=== PATIENT | female | born 1975 | race Caucasian/White ===

== ENCOUNTER 2025-01-12 10:05 | Emergency (ER) | payer OTHER ==
[~2025-01-12] VITALS: Ht 154.9 cm; Wt 88.7 kg
--- NOTE | 2025-01-12 10:30 | Physician Documentation ---
History of Present Illness Stated Complaint: LOWER BACK PAIN HPI The patient is a 50 year old female that presents to the emergency department today for evaluation of left shoulder and left lower back pain times several months. Reports that she sustained an injury while at work several months ago falling onto her butt and injuring her shoulder and lower back at that time. Denies having any x-rays at that time reports that she has continued tenderness and pain when she lifts her left arm or turns her neck toward that side pain with sitting that radiates down her hip. Denies any cervical tenderness or pain at this time. Denies headache. Denies saddle anesthesia incontinence of bowel or bladder or numbness to her upper or lower extremities. Persists she has her Tylenol last night with some relief. Medication Reconciliation Allergies: Coded Allergies: No Known Allergies (Unverified , 01/12/25) Scheduled Cyclobenzaprine* (Cyclobenzaprine*), 1 TAB PO BID Review of Systems ROS As stated above in the HPI, otherwise all systems are reviewed and negative. Physical Exam Physical Exam VITALS: Reviewed and as above. GENERAL: Alert, no apparent distress. HEENT: Normocephalic, atraumatic, PERRL, EOMI, dry mucosa, no erythema RESPIRATORY: Lungs clear, normal breath sounds, no respiratory distress. CHEST: No accessory muscle use, no retractions CV: Regular rate, rhythm, no edema, no murmur, No: JVD GI: Soft, non-tender, bowels sounds present, no rebound, guarding, or rigidity BACK: No CVA tenderness, or swelling MUSCULOSKELETAL: Significant bilateral chronic lymphedema, drinking wound to the lower right extremity, mild erythema present SKIN: Warm and dry, significant lymphedema and mild erythema present to the bilateral lower extremities. NEURO: Oriented x4, No motor or sensory deficit PSYCH: Normal mood and affect, no agitation Medical Decision Making Findings This patient presents with back and shoulder pain most consistent with lumbosacral sprain and cervical radiculopathy secondary to a fall in August. Differential diagnoses includes lumbago versus musculoskeletal spasm / strain versus sciatica. Less likely sciatica as straight leg raise test was negative. No back pain red flags on history or physical. Presentation not consistent with malignancy (lack of history of malignancy, lack of B symptoms), fracture (no trauma, no bony tenderness to palpation), cauda equina (no bowel or urinary inco ntinence/retention, no saddle anesthesia, no distal weakness), AAA, viscus perforation, osteomyelitis or epidural abscess (no IVDU, vertebral tenderness), renal colic, pyelonephritis (afebrile, no CVAT, no urinary symptoms). Given the clinical picture, no indication for imaging at this time. Patient provided with Toradol injection, steroid injection and muscle relaxer today. Patient reported significant improvement in her discomfort. Patient will follow up with your primary care provider for additional imaging and MRI. Patient will return to the emergency department if she has any worsening of her current symptoms or any additional concerning symptoms that we discussed here today. Differential Dx:Considerations: Include: AAA, -Complete, - Incomplete, -Inevitable, -Missed, -Threatened, Abruptio placentae, Angina/[place], Aortic dissection, Appendicitis, Bowel obstruction, Cholangitis, Cholelithasis, Constipation, Diverticular disease, Esophageal ruptu re, Esophagitis, Gastritis/PUD, Gastroenteritis, GI hemorrhage, Hernia, Hepatitis, Inflammatory BD, Ischemic bowel, Ovarian cyst/torsion, Pancreatitis, PID, Porphyria, Trauma, intraabdominal, Urinary obstruction, Urinary tract infection, Urolithiasis, Other Departure Disposition: 01 HOME / SELF CARE / HOMELESS Impression: Primary Impression: Shoulder pain Additional Impressions: Shoulder joint pain Lumbosacral pain Sprain, lumbosacral Discharge Instructions: Cervical Radiculopathy, [id number], Chronic Back Pain, [id number], Sciatica, [id number], Shoulder Pain Additional Instructions: Evaluated for chronic left shoulder in the left low back pain that radiates down her left leg. Today we discussed that you have an MRI approval you just need to find a primary care provider to order the MRI. We discussed Tylenol ibuprofen muscle relaxers for discomfort and pain relief. You are given a Toradol injection as steroid injection and a dose of muscle relaxer while here in the emergency department. Prescribed Flexeril for five days. Medication as prescribed. Not drive or operate equipment while taking Flexeril we will combine Flexeril was any other medications that may cause sedation. Please return to the emergency department if you have any worsening or recurrent symptoms or any other concerning symptoms that we discussed here today. Referrals: NO PRIMARY CARE PROVIDER (PCP) Prescriptions Cyclobenzaprine* (Cyclobenzaprine*) 10 Mg Tablet 1 TAB PO BID for 5 Days, #10 TAB Prov: KARINE SKINNER 01/12/25 Education Educated: Patient Educated regarding: diagnosis, treatment, need for follow up Signature Scribe Signature: A Attestation: Scribed for Karine Skinner by SONALI Shrestha . 01/14/25 12:49 KARINE SKINNER Jan 12, 2025 10:30
[2025-01-12] MEDS: ketorolac trometh 30MG/ML vial 30 MG/ML VIAL IM ONE (11:01)
--- NOTE | 2025-01-12 11:05 | RADIOLOGY REPORT ---
PROCEDURE: Left shoulder radiographs. INDICATION: Pain TECHNIQUE: 3 views of the left shoulder were obtained. COMPARISON: None FINDINGS: There is no evidence of fracture or dislocation. Joint spaces are maintained. The soft tis sues are unremarkable. IMPRESSION: 1. No fracture or dislocation.
--- NOTE | 2025-01-12 11:07 | RADIOLOGY REPORT ---
PROCEDURE: Left hip radiographs. INDICATION: Pain TECHNIQUE: Frontal and frogleg lateral views of the left hip were obtained. COMPARISON: None FINDINGS: There is no evidence of fracture or dislocation. Joint spaces are maintained. The soft tis sues are unremarkable. IMPRESSION: 1. No fracture or dislocation.
--- NOTE | 2025-01-12 11:07 | RADIOLOGY REPORT ---
INDICATION: pain TECHNIQUE: 4 views of the lumbar spine were obtained. COMPARISON: None FINDINGS: There are no acute fractures or subluxations. IMPRESSION: No acute fracture or subluxation.
[2025-01-12] MEDS ORDERED: CYCL-1 PO (12:17)
[2025-01-12 12:29] VITALS: BP 173/100; PULSE 70; RESP 17; TEMP 98; O2SAT 97
== END 2025-01-12 12:30 | disposition home or self-care (01) ==
LOC: ER 10:06
DX: S33.9XXA Sprain of unspecified parts of lumbar spine and pelvis, initial encounter (principal); M25.512 Pain in left shoulder; X58.XXXA Exposure to other specified factors, initial encounter; Y93.89 Activity, other specified; Y92.89 Other specified places as the place of occurrence of the external cause; Y99.8 Other external cause status
CPT/HCPCS: 36415; 72100; 73030; 73502; 84484; 96372; 99284; J1885; J2919

== ENCOUNTER 2025-01-31 10:16 | Emergency (ER) | payer OTHER ==
[~2025-01-31] VITALS: Ht 154.9 cm; Wt 90.6 kg
[~2025-01-31 10:16] MED LIST: CYCL-1 PO
[2025-01-31 10:23] VITALS: TEMP 97.8
--- NOTE | 2025-01-31 11:17 | Physician Documentation ---
History of Present Illness ~ General Chief Complaint: See Chief Complaint Stated Complaint: BACK AND SHOULDER PAIN Time Seen by MD: 15:07 Primary Medical Doctor: No PCP History of Present Illness Initial Comments This is a 50-year-old female who presents back to the emergency department with low back pain, left shoulder pain, and left leg pain following a fall at work. Patient reports that pain has not worsened though it isn't also not improved. Patient reports no new weakness or numbness in legs, no loss of bowel or bladder control and no saddle paresthesia. Medication Reconciliation Allergies: Coded Allergies: No Known Allergies (Unverified , 01/31/25) Scheduled Cyclobenzaprine* (Cyclobenzaprine*), 1 TAB PO BID Review of Systems ROS As stated above in the HPI, otherwise all systems are reviewed and negative. Constitutional: Denies: chills, fever, weakness Eyes: Denies: pain, blurred vision ENT: Denies: ear pain, nose pain, throat pain, mouth pain Respiratory: Denies: cough, shortness of breath Cardiovascular: Denies: chest pain, palpitations Gastrointestinal: Denies: abdominal pain, nausea, vomiting Genitourinary: Denies: burning, dysuria Female Genitalia: Denies: vaginal discharge, pelvic pain Neurological: Denies: headache, dizziness Musculoskeletal: Denies: pain, swelling Integumentary: Denies: rash, lesions Allergic/Immunologic: Denies: hives, itching Hematologic/Lymphatic: Denies: no symptoms reported Psychiatric: Denies: depression, anxiety Physical Exam Physical Exam Vital Signs: Temperature: 97.8, Source: Oral, Heart Rate: 78, Respiratory Rate: 18, BP: 177/95, Pulse Oximetry: 95, Weight: 90.600 Oxygen Flow Rate: 0 Physical Exam General: Awake and Alert, no acute distress. HEENT: Conjunctiva pink, Sclera clear, Mucus Membranes moist. Neck: Supple without masses and tenderness. Resp: Unlabored. Lungs clear to auscultation bilaterally. Heart: Regular Rate and rhythm, normal S1 and S2 without murmur, rub or gallop. Musculoskeletal: Patient on exam has significantly decreased range of motion of the lumbar spine in all planes of motion. Patient is neurovascularly intact distally. Motor function intact distally. Strength intact distally. Extremities: No cyanosis,clubbing or edema. Skin: Warm and Dry. Progress Results/Orders Results/Orders Vital Signs 01/31/25 01/31/25 10:23 15:01 Temp 97.8 Pulse 78 72 Resp 18 18 B/P (MAP) 177/95 186/107 (133) Pulse Ox 95 98 O2 Flow Rate 0 Medical Decision Making Findings This is a 50-year-old female who presents back to the emergency department with low back pain, left shoulder pain, and left leg pain following a fall at work. Patient reports that pain has not worsened though it isn't also not improved. Patient reports no new weakness or numbness in legs, no loss of bowel or bladder control and no saddle paresthesia. Patient did receive Toradol 30 mg IM and baclofen 10 mg p.o. in the ED today. Patient given prescription for muscle relaxer methocarbamol and meloxicam 15 mg to be taken as prescribed. Patient will establish care with primary care and get referral for MRI of the lumbar spine. As well as referral to orthopedic parking enforcement specialist. Return to ED with any worsening, concerning or changing symptoms. Departure Disposition: HOME / SELF CARE / HOMELESS Impression: Primary Impression: Lumbosacral pain Condition: Stable Discharge Instructions: Chronic Back Pain, [id number] Additional Instructions: Patient did receive Toradol 30 mg IM and baclofen 10 mg p.o. in the ED today. Patient given prescription for muscle relaxer methocarbamol and meloxicam 15 mg to be taken as prescribed. Patient will establish care with primary care and get referral for MRI of the lumbar spine. As well as referral to orthopedic parking enforcement specialist. Return to ED with any worsening, concerning or changing symptoms. Referrals: NO PRIMARY CARE PROVIDER (PCP) Prescriptions Methocarbamol (Methocarbamol) 750 Mg Tablet 1 TAB PO Q8H for 15 Days, #45 TAB 0 Refills Prov: RANDELL CASTANO 01/31/25 Meloxicam (Meloxicam) 15 Mg Tablet 1 TAB PO DAILY for 30 Days, #30 TAB 0 Refills Prov: RANDELL CASTANO 01/31/25 Signature Scribe Signature: No scribe Attestation: No scribe STALIN SCALES [facility] Jan 31, 2025 11:17 RANDELL CASTANO Jan 31, 2025 16:14
[2025-01-31] MEDS ORDERED: METH-798 PO (16:16)
[2025-01-31] MEDS ORDERED: MELO-102 PO (16:16)
[2025-01-31] MEDS: ketorolac trometh 30MG/ML vial 30 MG/ML VIAL IM STA (16:24)
[2025-01-31 16:38] VITALS: BP 217/106; PULSE 62; RESP 18; O2SAT 98
== END 2025-01-31 16:40 | disposition home or self-care (01) ==
LOC: ER 10:17
DX: M54.50 Low back pain, unspecified (principal); M25.512 Pain in left shoulder
CPT/HCPCS: 96372; 99283; J1885

== ENCOUNTER 2025-02-22 09:50 | Emergency (ER) | payer OTHER ==
[~2025-02-22] VITALS: Ht 160 cm; Wt 89.3 kg
[~2025-02-22 09:50] MED LIST changes: +MELO-102 PO; +METH-798 PO
[2025-02-22 10:06] VITALS: BP 176/101; PULSE 78; O2SAT 100
--- NOTE | 2025-02-22 11:01 | Physician Documentation ---
History of Present Illness ~ Chief Complaint: Back Pain Stated Complaint: BACK PAIN Time Seen by MD: 10:52 Primary Medical Doctor: NONE HPI Patient is seen today with complaints of chronic low back pain and chronic left shoulder pain. Patient states he fell over backwards in a work comp injury and hurt her low back and left shoulder. She states she has done some physical therapy but has not yet seen an ocean lifeguard specialist. Patient denies any numbness or tingling of her extremities and has no other concern or complaint at this time. Medication Reconciliation Allergies: Coded Allergies: No Known Allergies (Unverified , 02/22/25) Scheduled Cyclobenzaprine* (Cyclobenzaprine*), 1 TAB PO BID Meloxicam (Meloxicam), 1 TAB PO DAILY Methocarbamol (Methocarbamol), 1 TAB PO Q8H Review of Systems Constitutional: Denies: chills, fever, weakness Eyes: Denies: pain, blurred vision ENT: Denies: ear pain, nose pain, throat pain, mouth pain Respiratory: Denies: cough, shortness of breath Cardiovascular: Denies: chest pain, palpitations Gastrointestinal: Denies: abdominal pain, nausea, vomiting Genitourinary: Denies: burning, dysuria Female Genitalia: Denies: vaginal discharge, pelvic pain Neurological: Denies: headache, dizziness Musculoskeletal: Denies: pain, swelling Integumentary: Denies: rash, lesions Allergic/Immunologic: Denies: hives, itching Hematologic/Lymphatic: Denies: no symptoms reported Psychiatric: Denies: depression, anxiety Physical Exam Physical Exam Vital Signs: Temperature: 97.2, Source: Temporal, Heart Rate: 78, Respiratory Rate: 16, BP: 176/101, Pulse Oximetry: 100, Weight: 89.300 Oxygen Flow Rate: 0 Physical Exam General: Awake and Alert, no acute distress. HEENT: Conjunctiva pink, Sclera clear, Mucus Membranes moist. Neck: Supple without masses and tenderness. Resp: Unlabored. Lungs clear to auscultation bilaterally. Heart: Regular Rate and rhythm, normal S1 and S2 without murmur, rub or gallop. Musculoskeletal: Patient on exam has significant decreased range of motion of the lumbar spine in all planes of motion and decreased range of motion of the left shoulder. Patient is neurovascularly intact distally. Motor function and strength intact distally. Extremities: No cyanosis,clubbing or edema. Skin: Warm and Dry. Progress Results/Orders Results/Orders Vital Signs 02/22/25 10:06 Temp 97.2 Pulse 78 Resp 16 B/P (MAP) 176/101 Pulse Ox 100 O2 Flow Rate 0 Medical Decision Making Findings Patient is seen today with complaints of chronic low back pain and chronic left shoulder pain. Patient states he fell over backwards in a work comp injury and hurt her low back and left shoulder. She states she has done some physical therapy but has not yet seen an ocean lifeguard specialist. Patient denies any numbness or tingling of her extremities and has no other concern or complaint at this time. Patient was given Toradol 30 mg IM in the ED today along with Tylenol 975 mg by mouth. Patient will follow up with primary care provider for referral to ocean lifeguard specialist for further eval and treatment and possible MRI of the lumbar spine. Return to ED with any worsening, concerning or changing symptoms. Prescription of meloxicam 15 mg one tab once a day sent to patient's pharmacy Departure Disposition: HOME / SELF CARE / HOMELESS Impression: Primary Impression: Low back pain Qualified Codes: M54.50 - Low back pain, unspecified; G89.29 - Other chronic pain Additional Impressions: Chronic back pain Qualified Codes: M54.50 - Low back pain, unspecified; G89.29 - Other chronic pain Shoulder joint pain Qualified Codes: M25.512 - Pain in left shoulder Condition: Stable Discharge Instructions: Chronic Back Pain Additional Instructions: Patient was given Toradol 30 mg IM in the ED today along with Tylenol 975 mg by mouth. Patient will follow up with primary care provider for referral to ocean lifeguard specialist for further eval and treatment and possible MRI of the lumbar spine. Return to ED with any worsening, concerning or changing symptoms. Prescription of meloxicam 15 mg one tab once a day sent to patient's pharmacy Referrals: NO PRIMARY CARE PROVIDER (PCP) Prescriptions Meloxicam (Meloxicam) 15 Mg Tablet 1 TAB PO DAILY for 30 Days, #30 TAB 0 Refills Prov: RANDELL CASTANO 02/22/25 Signature Scribe Signature: No scribe Attestation: No scribe RANDELL CASTANO Feb 22, 2025 11:01
[2025-02-22 11:17] VITALS: RESP 16
[2025-02-22] MEDS: ketorolac trometh 30MG/ML vial 30 MG/ML VIAL IM STA (11:17)
[2025-02-22 11:22] VITALS: TEMP 97.2
== END 2025-02-22 11:30 | disposition home or self-care (01) ==
LOC: ER 09:50
DX: G89.29 Other chronic pain (principal); M54.50 Low back pain, unspecified; M25.512 Pain in left shoulder; W19.XXXA Unspecified fall, initial encounter; Y93.89 Activity, other specified; Y92.89 Other specified places as the place of occurrence of the external cause; Y99.8 Other external cause status
CPT/HCPCS: 96372; 99283; J1885